=== PATIENT | female | born 1990 | race Caucasian/White ===

== ENCOUNTER 2022-10-26 07:31 | Inpatient (IN) | payer BC ==
[2022-10-26 08:00] VITALS: BMI 36.6
[2022-10-26] MEDS ORDERED: Bupivacaine HCl 0.5%/Epinephrine 1:200,000/PF 30 ml Vial ONE (08:00)
[2022-10-26 08:42] LABS: Fetal Membranes Rupture RUPTURE DETECTED (No Rupture)
[2022-10-26] MEDS ORDERED: Betamet Acet/Betamet Na Ph 30 MG/5 ML VIAL ONE (09:08)
[2022-10-26] MEDS ORDERED: Ondansetron PF 4 MG/2 ML Vial IVP PRN ×3 (09:35→19:25)
[2022-10-26] MEDS ORDERED: Misoprostol 200 MCG TAB PR PRN (09:35)
[2022-10-26] MEDS ORDERED: Acetaminophen 500 MG TAB PO PRN (09:35)
[2022-10-26] MEDS ORDERED: Zolpidem Tartrate 5 MG TAB PO PRN (09:35)
[2022-10-26] MEDS ORDERED: Carboprost 250 MCG/ML AMP IM PRN (09:35)
[2022-10-26] MEDS ORDERED: Lidocaine 1% (PF) 30 ML VIAL SC PRN (09:35)
[2022-10-26] MEDS ORDERED: hydrALAZINE 20 MG/ML VIAL SLOW IVP PRN ×2 (09:35→19:25)
[2022-10-26] MEDS ORDERED: HYDROcodone/Acetaminophen 5/325 mg Tablet PO PRN (09:35)
[2022-10-26] MEDS ORDERED: Butorphanol Tartrate 1 MG/ML VIAL SLOW IVP PRN (09:35)
[2022-10-26] MEDS ORDERED: Promethazine HCl 25 MG/ML VIAL IM PRN ×2 (09:35→17:40)
[2022-10-26] MEDS ORDERED: Ibuprofen 800 MG TAB PO PRN (09:35)
[2022-10-26] MEDS ORDERED: Diphenoxylate HCl/Atropine Tablet PO PRN (09:35)
[2022-10-26] MEDS ORDERED: Methylergonovine 0.2 MG/ML VIAL IM PRN ×2 (09:35→19:25)
[2022-10-26] MEDS ORDERED: NS w/ Oxytocin 30 units 500 ML IV SCH ×2 (09:45→19:30)
[2022-10-26] MEDS ORDERED: Penicillin G Potassium 5 MILL.UNITS in Sodium Chloride 0.9% 100 ML IVPB SCH (09:45)
[2022-10-26] MEDS ORDERED: Lactated Ringer's 1,000 ML IV SCH (09:45)
[2022-10-26] MEDS ORDERED: Betamet Acet/Betamet Na Ph 30 MG/5 ML VIAL IM SCH (09:45)
[2022-10-26 10:04] LABS: Hemoglobin 11.3 g/dL (12.0-15.5); Mean Corpuscular HGB CONC 34.1 g/dL (32.0-36.0); Mean Corpuscular Hemoglobin 28.9 pg (27.0-33.0); Mean Corpuscular Volume 84.7 fl (81.6-98.3); Mean Platelet Volume 11.4 fl (7.4-10.4); Platelet Count 237 10x3/uL (150-450); RBC Distribution Width 13.2 % (11.5-14.5); Red Blood Cell (RBC) Count 3.91 10x6/uL (3.90-5.03); White Blood Cell (WBC) Count 10.5 10x3/uL (3.5-10.5)
[2022-10-26 10:30] LABS: SARS-CoV-2 NAA Rapid Test Not Detected (NotDetected); Syphilis Antibody Nonreactive (Nonreactive); Syphilis Antibody Index 0.04 S/CO (<1.00 Non-Reactive)
[2022-10-26 10:32] LABS: HBSAg Index 0.17 S/CO (0-0.99); Hep B Surf Ag Non-Reactive S/CO (NonReactive)
[2022-10-26] MEDS ORDERED: Fentanyl 2 mcg/Bup 0.1% Cadd 100 ML ONE (17:03)
[2022-10-26] MEDS ORDERED: NS w/ Oxytocin 30 units 500 ML ONE (17:04)
[2022-10-26] MEDS: Penicillin G 2.5 MILL.units 2.5 MILL.UNITS in Premix Bag 1 BAG IVPB SCH (17:38)
[2022-10-26] MEDS ORDERED: Acetaminophen 325 MG TAB PO PRN (17:40)
[2022-10-26] MEDS ORDERED: Moisturizing Cream (Eucerin) 113 GM JAR TOP PRN (17:40)
[2022-10-26] MEDS ORDERED: diphenhydrAMINE 50 MG/ML VIAL IVP PRN (17:40)
[2022-10-26] MEDS ORDERED: ePHEDrine Sulfate 50 MG/10 ML VIAL SLOW IVP PRN (17:40)
[2022-10-26] MEDS ORDERED: Naloxone HCl 0.4 mg/ml Vial IVP PRN ×2 (17:40)
[2022-10-26] MEDS ORDERED: Communication Order-Pharmacy FS SCH (17:45)
[2022-10-26] MEDS ORDERED: Fentanyl 2 mcg/Bupivacaine 0.1% Cassette 100 ML EPIDURAL SCH (17:45)
[2022-10-26] MEDS ORDERED: Lactated Ringer's 500 ML IV PRN (17:46)
[2022-10-26] MEDS ORDERED: Lanolin Ointment 7 GM TUBE TOP PRN (19:25)
[2022-10-26] MEDS ORDERED: Misoprostol 200 MCG TAB VAG PRN (19:25)
[2022-10-26] MEDS ORDERED: Milk Of Magnesia 30 ML UDCUP PO PRN (19:25)
[2022-10-26] MEDS ORDERED: Bisacodyl 10 MG SUPP PR PRN (19:25)
[2022-10-26] MEDS ORDERED: Preparation H Ointment 28 GM TUBE PR PRN (19:25)
[2022-10-26] MEDS ORDERED: Boostrix 0.5 ML (Tdap) VIAL (>/=7 yrs of age) IM ONE (19:25)
[2022-10-26] MEDS: Ibuprofen 800 MG TAB PO SCH (22:40)
[2022-10-26] MEDS: Docusate 100 MG CAP PO SCH (22:40)
[2022-10-27] MEDS: Ibuprofen 800 MG TAB PO SCH ×3 (05:13→21:28)
[2022-10-27] MEDS: Ferrous Sulfate 325 MG TAB PO SCH (07:23)
[2022-10-27] MEDS: Penicillin G 2.5 MILL.units 2.5 MILL.UNITS in Premix Bag 1 BAG IVPB SCH (07:27)
[2022-10-27] MEDS: Prenatal Vitamin 1 TAB PO SCH (08:02)
[2022-10-27] MEDS: Docusate 100 MG CAP PO SCH ×2 (08:02→21:28)
[2022-10-28] MEDS: Ibuprofen 800 MG TAB PO SCH ×2 (05:11→13:43)
[2022-10-28] MEDS: Ferrous Sulfate 325 MG TAB PO SCH (07:30)
[2022-10-28] MEDS: Prenatal Vitamin 1 TAB PO SCH (07:31)
[2022-10-28] MEDS: Docusate 100 MG CAP PO SCH (07:32)
[2022-10-28 08:03] VITALS: BP 102/50; TEMP 98.1
== END 2022-10-28 17:45 | disposition home or self-care (01) | DRG 807 ==
LOC: CSHLD/OP 07:31 → CSHLD 10:29 → CSHPP 21:37
PROVIDERS: ADMIT Student in an Organized Health Care Education/Training Program; ATTEND Student in an Organized Health Care Education/Training Program
PROC: 10E0XZZ Delivery of Products of Conception, External Approach (ICD-10-PCS; principal; 2022-10-26)
PROC: 0KQM0ZZ Repair Perineum Muscle, Open Approach (ICD-10-PCS; 2022-10-26)
DX: O42.013 Preterm premature rupture of membranes, onset of labor within 24 hours of rupture, third trimester (principal); Z37.0 Single live birth; Z20.822 Contact with and (suspected) exposure to COVID-19; Z3A.35 35 weeks gestation of pregnancy; O69.81X0 Labor and delivery complicated by cord around neck, without compression, not applicable or unspecified; O70.1 Second degree perineal laceration during delivery
CPT/HCPCS: 36415; 51702; 84112; 85027; 86780; 86850; 86900; 86901; 87340; 99285; J0702; J2540; J3490; U0002